=== PATIENT | female | born 1980 | race Caucasian/White ===

== ENCOUNTER 2017-08-28 15:27 | Inpatient (IN) | payer SELFPAY ==
[~2017-08-28] VITALS: Ht 154.9 cm; Wt 72.6 kg
[2017-08-28] MEDS ORDERED: SODIUM CHLORIDE 0.9% 1,000 ML IV ONE ×2 (18:34→20:00)
[2017-08-28] MEDS ORDERED: ACETAMINOPHEN 325MG TABLET PO STA (18:34)
[2017-08-28] MEDS ORDERED: ONDANSETRON HCL 4MG/2ML VIAL IV ONE (19:00)
[2017-08-28] MEDS ORDERED: MAGNESIUM/ALUMINUM HYDROXIDE/SIMETHICONE 30ML UDC PO ONE (19:00)
[2017-08-28 19:08] LABS: HEMATOCRIT. 33.7 % (36.0-48.0); HEMOGLOBIN. 11.1 g/dL (12.0-16.0); MEAN CORPUSCULAR HEMOGLOBIN 25.6 pg (28.0-32.0); MEAN CORPUSCULAR VOLUME 77.7 fL (81.0-99.0); MEAN PLATELET VOLUME 7.9 fl (7.4-10.4); PLATELET 388 x1000/uL (130-400); RED BLOOD CELL COUNT 4.34 mill/uL (4.2-5.4); RED CELL DISTRIBUTION WIDTH 17.5 % (11.6-14.6)
[2017-08-28 19:11] LABS: INR 1.2; PROTHROMBIN TIME 12.2 sec (9.4-11.6)
[2017-08-28 19:18] LABS: CARBON DIOXIDE 21 mEq/L (21-32); CHLORIDE 105 mEq/L (98-107)
[2017-08-28 19:29] LABS: PLATELET ESTIMATE NORMAL
[2017-08-28] MEDS ORDERED: POTASSIUM CHLORIDE 20MEQ TABLET SR PO ONE (19:30)
[2017-08-28] MEDS ORDERED: SODIUM CHLORIDE 0.9% 500 ML IV ONE (21:30)
[2017-08-28] MEDS ORDERED: SODIUM CHLORIDE 0.9% 1000ML BAG (SEPSIS BOLUS) IV ONE (22:45)
[2017-08-28] MEDS ORDERED: DIPHENHYDRAMINE 50MG/ML VIAL IV PRN (23:00)
[2017-08-28] MEDS ORDERED: HYDROCODONE/ACETAMINOPHEN 5/325MG TABLET PO PRN (23:00)
[2017-08-28] MEDS ORDERED: ONDANSETRON HCL 4MG/2ML VIAL IV PRN (23:00)
[2017-08-28] MEDS ORDERED: HYDROCODONE/ACETAMINOPHEN 10/325MG TABLET PO PRN (23:00)
[2017-08-28] MEDS ORDERED: IPRATROPIUM/ALBUTEROL 0.5-3(2.5)MG/3ML NEB INH PRN (23:00)
[2017-08-29] VITALS (8 sets, daily range): BP systolic 87–148; BP diastolic 44–84
[2017-08-29] MEDS ORDERED: SODIUM CHLORIDE 0.9% 500 ML IV ONE (02:18)
[2017-08-29] MEDS: VANCOMYCIN 1 G PREMIX 200 ML IV SCH ×3 (03:34→22:22)
[2017-08-29] MEDS: PIPERACILLIN/TAZ 3.375G PREMIX 50 ML IV SCH ×3 (05:16→22:21)
[2017-08-29 07:15] LABS: BASOPHILS % 0.3 % (0.0-2.0); HEMATOCRIT. 30.1 % (36.0-48.0); HEMOGLOBIN. 9.8 g/dL (12.0-16.0); LYMPHOCYTES % 16.4 % (20.0-50.0); MEAN CORPUSCULAR HEMOGLOBIN 25.3 pg (28.0-32.0); MEAN CORPUSCULAR VOLUME 77.7 fL (81.0-99.0); MEAN PLATELET VOLUME 8.6 fl (7.4-10.4); MONOCYTES % 5.6 % (2.0-8.0); NEUTROPHILS % 77.7 % (40.0-76.0); PLATELET 349 x1000/uL (130-400); RED BLOOD CELL COUNT 3.87 mill/uL (4.2-5.4); RED CELL DISTRIBUTION WIDTH 17.8 % (11.6-14.6)
[2017-08-29 07:35] LABS: CARBON DIOXIDE 21 mEq/L (21-32); CHLORIDE 113 mEq/L (98-107); LDL CHOLESTEROL 53 mg/dL (5-100)
[2017-08-29 07:45] LABS: CREATINE KINASE 45 IU/L (26-192); HDL CHOLESTEROL 42 mg/dL (40-59); TROPONIN I < 0.02 ng/mL (0.00-0.04)
[2017-08-29] MEDS ORDERED: FUROSEMIDE 20MG TABLET PO NR (09:15)
[2017-08-29 09:36] LABS: BG BASE EXCESS -5.4 mmol/L (-2.0-2.0); BG CARBOXYHEMOGLOBIN 0.3 % (0.5-1.5); BG DEOXYHEMOGLOBIN 3.1 % (0.0-5.0); BG FRACTION INSPIRED OXYGEN 21; BG HCO3 ACT 18.3 mmol/L (22.0-26.0); BG OXYGEN SATURATION 96.9 % (92.0-98.5); BG OXYHEMOGLOBIN 96.6 % (94.0-97.0); BG PCO2 29.5 mmHg (35.0-45.0); BG SAMPLE SITE RIGHT BRACHIAL; BG TOTAL HEMOGLOBIN 10.4 g/dL (12.0-18.0); BG VENT MODE ROOM AIR
[2017-08-29] MEDS ORDERED: POTASSIUM CHLORIDE INJ 80 MEQ in SODIUM CHLORIDE 0.9% 1,000 ML IV NR (10:00)
[2017-08-29] MEDS: OSELTAMIVIR 75MG CAPSULE PO SCH ×2 (10:35→20:16)
[2017-08-29 16:03] LABS: CREATINE KINASE 41 IU/L (26-192); TROPONIN I < 0.02 ng/mL (0.00-0.04)
[2017-08-29] MEDS: SODIUM CHLORIDE 0.9% 1,000 ML IV SCH (22:40)
[2017-08-30] VITALS (8 sets, daily range): BP systolic 76–106; BP diastolic 43–70
[2017-08-30 04:30] LABS: CHLORIDE 113 mEq/L (98-107)
[2017-08-30 04:38] LABS: CARBON DIOXIDE 26 mEq/L (21-32); VANCOMYCIN TROUGH 20.6 ug/mL (5.0-10.0)
[2017-08-30] MEDS: SODIUM CHLORIDE 0.9% 1,000 ML IV SCH ×2 (05:55→16:48)
[2017-08-30] MEDS: PIPERACILLIN/TAZ 3.375G PREMIX 50 ML IV SCH ×2 (05:56→14:00)
[2017-08-30] MEDS: VANCOMYCIN 1 G PREMIX 200 ML IV SCH (05:56)
[2017-08-30 06:27] LABS: HEMOGLOBIN 9.9 g/dL (12.0-16.0); MEAN CORPUSCULAR HEMOGLOBIN 25.4 pg (28.0-32.0); MEAN CORPUSCULAR VOLUME 79.5 fL (81.0-99.0); PLATELET 329 x1000/uL (130-400)
[2017-08-30] MEDS: OSELTAMIVIR 75MG CAPSULE PO SCH (08:22)
[2017-08-30] MEDS ORDERED: LOPERAMIDE 2 MG/10 ML UDC PO PRN (11:15)
== END 2017-08-30 20:34 | disposition home or self-care (01) | DRG 720 ==
LOC: ER 17:04 → 5WST 22:11 → ENRESERV 22:23
PROVIDERS: ADMIT Internal Medicine; ATTEND Internal Medicine
DX: A41.9 Sepsis, unspecified organism (principal); R34 Anuria and oliguria; E66.9 Obesity, unspecified; E87.6 Hypokalemia; K29.00 Acute gastritis without bleeding; N39.0 Urinary tract infection, site not specified; Z68.30 Body mass index [BMI] 30.0-30.9, adult
CPT/HCPCS: 36415; 36600; 71010; 76770; 80053; 80061; 80202; 81025; 82375; 82550; 82805; 83605; 83690; 84145; 84443; 84484; 85025; 85027; 85610; 87015; 87040; 87045; 87077; 87186; 87427; 87449; 87493; 87804; 89055; 93005; 93970; 96361; 96374; 99285; J2405; J2543; J3370; J3480; J7030; J7040; J7050